=== PATIENT | female | born 1945 | race American Indian/Alaskan Native ===

== ENCOUNTER → 2017-08-04 | Outpatient (CLI) | payer MEDICARE, BC ==
[~2017-08-04] MED LIST: BLOO-1318 MC; GLIM2TAB43 PO; GLIM4TAB50 PO; HYDR-2966 PO; PIOG45TA3 PO; PRAV40TA78 PO; RAMI5CAP53 PO; ROSU10TA13 PO; ROSU20TA13 PO; SITA1TAB17 PO; SITA1TBM4 PO
[2017-08-04 09:42] LABS: PLATELET COUNT, AUTOMATED 265 K/uL (150-450)
== END ==
LOC: LAB 09:19
PROVIDERS: ATTEND Emergency Medicine
DX: E11.9 Type 2 diabetes mellitus without complications (principal); E55.9 Vitamin D deficiency, unspecified; I10 Essential (primary) hypertension
CPT/HCPCS: 36415; 82040; 82247; 82306; 82310; 82374; 82435; 82465; 82565; 82947; 83036; 83718; 84075; 84132; 84155; 84295; 84443; 84450; 84460; 84478; 84520; 85025

== ENCOUNTER → 2017-08-11 | Outpatient (CLI) | payer MEDICARE, BC ==
[~2017-08-11] MED LIST changes: +CHOL100052 PO
== END ==
LOC: LAB 13:10
PROVIDERS: ATTEND Emergency Medicine
DX: D64.9 Anemia, unspecified (principal)
CPT/HCPCS: 82274

== ENCOUNTER → 2017-09-02 | Outpatient (CLI) | payer MEDICARE, BC ==
[~2017-09-02] MED LIST changes: +GOLYTE PO
[2017-09-02 08:55] LABS: PLATELET COUNT, AUTOMATED 267 K/uL (150-450)
== END ==
LOC: LAB 08:31
PROVIDERS: ATTEND Emergency Medicine
DX: D64.9 Anemia, unspecified (principal)
CPT/HCPCS: 36415; 85025

== ENCOUNTER 2017-10-15 02:40 | Day surgery (SDC) | payer MEDICARE, BC ==
[~2017-10-15] VITALS: Ht 157.5 cm; Wt 80.3 kg
[2017-10-15 08:04] VITALS: BP 148/78
[2017-10-15] MEDS ORDERED: LIDOCAINE/SOD BICARB 8.4% SYR ID ONE (08:30)
[2017-10-15] MEDS ORDERED: NORMOSOL R SOLN(*) 1000 ML BAG 1,000 ML IV PRN (08:30)
[2017-10-15] MEDS ORDERED: PROPOFOL EMUL(*) 10MG/ML 20 ML 20 ML ONE (10:28)
[2017-10-15 10:46] VITALS: BP 132/70
--- NOTE | 2017-10-15 10:50 | Short(Outpt) Discharge Summary ---
Discharge Summary Reason for Hosp/Final Diag: (1) Colon cancer screening Status: Chronic Hospital Course & Plan: Colonoscopy completed without any problems. Departure Discharge to: Home, Self Care Discharge Instructions Home Meds Active Scripts Peg/Electrolytes (GOLYTELY SOLUTION) 4,000 Ml Soln, 1 GAL PO ONCE, #1 GAL 0 Refills Prov:JANET BOURGEOIS MD 09/03/17 Rosuvastatin Calcium (Rosuvastatin Calcium) 20 Mg Tablet, 2 TAB PO DAILY, #90 TAB 3 Refills Prov:JASON BUENO MD 08/08/17 Blood Sugar Diagnostic (ONE TOUCH ULTRA TEST STRIPS) 1 Each Strip, 1 EACH MC DAILY, #100 STRIP 3 Refills Test blood sugar daily Prov:JASON BUENO MD 08/04/17 Sitagliptin Phos/Metformin Hcl (JANUMET XR 50-1,000 MG TABLET) 1 Each Tbmp.24hr , 1 EACH PO DAILY, #90 TAB 3 Refills Prov:JASON BUENO MD 08/04/17 Ramipril (RAMIPRIL) 5 Mg Capsule, 5 MG PO QDAY, #90 CAPSULE 3 Refills Prov:JASON BUENO MD 08/04/17 Hydrochlorothiazide (HYDROCHLOROTHIAZIDE) 25 Mg Tablet, 1 TAB PO QDAY, #90 TAB 3 Refills Prov:JASON BUENO MD 08/04/17 Glimepiride (GLIMEPIRIDE) 4 Mg Tablet, 4 MG PO QDAY, #90 TAB 3 Refills Prov:JASON BUENO MD 08/04/17 Reported Medications Cholecalciferol (Vitamin D3) (VITAMIN D) 1,000 Unit Tablet, 1000 UNIT PO DAILY 08/08/17 Diet: Regular Activity: As Tolerated Special Instructions: Your colonoscopy was completed without any problems. I didn't find any polyps, cancers, or inflammation in your colon. You do have diverticuli throughout your colon. These are benign outpouchings that develop over the course of your life and I just recommend that you're eating at least 4 servings of fruits and vegetables (mostly vegetables), every day. You should have one more colonoscopy in 10 years for screening (health permitting). JANET BOURGEOIS MD Oct 15, 2017 10:49
[2017-10-15 11:00] VITALS: BP 139/70
[2017-10-15 11:24] VITALS: BP 135/93
[2017-10-15 11:26] VITALS: BP 149/75
== END 2017-10-15 11:40 | disposition home or self-care (01) ==
LOC: OR 02:40
PROVIDERS: ATTEND Surgery
DX: Z12.11 Encounter for screening for malignant neoplasm of colon (principal); K57.30 Diverticulosis of large intestine without perforation or abscess without bleeding; I10 Essential (primary) hypertension; E11.9 Type 2 diabetes mellitus without complications; E66.9 Obesity, unspecified; Z68.32 Body mass index [BMI] 32.0-32.9, adult; E78.5 Hyperlipidemia, unspecified
CPT/HCPCS: 00812; 36416; 82948; G0121; J2704

== ENCOUNTER → 2018-08-12 | Outpatient (CLI) | payer MEDICARE, BC ==
[~2018-08-12] MED LIST changes: +DAPA5TAB PO; -PIOG45TA3 PO; +PIOG45TA65 PO; -RAMI5CAP53 PO; +RAMI5CAP7 PO; -ROSU10TA13 PO; +ROSU10TA5 PO; -ROSU20TA13 PO; +ROSU20TA5 PO
[2018-08-12 09:25] LABS: PLATELET COUNT, AUTOMATED 264 K/uL (150-450)
[2018-08-12 10:12] LABS: LDL CHOLESTEROL 96 mg/dl
== END ==
LOC: LAB 08:55
PROVIDERS: ATTEND Emergency Medicine
DX: E11.9 Type 2 diabetes mellitus without complications (principal); M85.80 Other specified disorders of bone density and structure, unspecified site; I10 Essential (primary) hypertension; E55.9 Vitamin D deficiency, unspecified
CPT/HCPCS: 36415; 82040; 82247; 82306; 82310; 82374; 82435; 82465; 82565; 82947; 83036; 83718; 84075; 84132; 84155; 84295; 84450; 84460; 84478; 84520; 85025

== ENCOUNTER → 2018-09-09 | Outpatient (CLI) | payer MEDICARE, BC ==
[~2018-09-09] MED LIST changes: +DAPA10TA PO; +ROSU40TA18 PO
== END ==
LOC: LAB 13:40
PROVIDERS: ATTEND Emergency Medicine
DX: E11.9 Type 2 diabetes mellitus without complications (principal)
CPT/HCPCS: 36415; 83036

== ENCOUNTER → 2018-09-15 | Outpatient (CLI) | payer MEDICARE, BC ==
--- NOTE | 2018-09-16 09:49 | RADIOLOGY IMAGING REPORT ---
FACILITY: [facility] - [place] PATIENT NAME: JASBIR JORDAN : [id number] MR: [id number] V: [id number] EXAM DATE: [id number] ORDERING PHYSICIAN: JASON BUENO TECHNOLOGIST: Regina Mcdonough PROCEDURE: BILATERAL DIGITAL SCREENING MAMMOGRAM WITH CAD ASSISTED INTERPRETATION & 3D TOMOSYNTHESIS. REASON FOR STUDY: Screening. FAMILY HISTORY OF BREAST CANCER: None. BREAST PROCEDURES/TREATMENTS: None. COMPARISON: 07/06/15. VIEWS OBTAINED: 2D & 3D full field CC & MLO. BREAST DENSITY: There are scattered areas of fibroglandular density throughout the breasts. MAMMOGRAM FINDINGS: The parenchymal pattern has remained stable allowing for difference in mammographic technique & patient positioning. IMPRESSION: BIRADS 1: Negative. DIAGNOSTIC CATEGORY 1--NEGATIVE. RECOMMENDATIONS: ROUTINE MAMMOGRAM AND CLINICAL EVALUATION IN 1 YEAR. Dictated by: Samina Zurita M.D. on 09/15/2018 at 16:48 Transcribed by: HERMELINDA on 09/16/2018 at 8:36 Approved by: Samina Zurita M.D. on 09/16/2018 at 9:48 [facility]
== END ==
LOC: MAMO 00:42
PROVIDERS: ATTEND Emergency Medicine
DX: Z12.31 Encounter for screening mammogram for malignant neoplasm of breast (principal)
CPT/HCPCS: 77063; 77067

== ENCOUNTER → 2018-10-06 | Outpatient (CLI) | payer MEDICARE, BC ==
[~2018-10-06] MED LIST changes: +ROSU20TA24 PO
== END ==
LOC: LAB 15:39
PROVIDERS: ATTEND Emergency Medicine
DX: E11.9 Type 2 diabetes mellitus without complications (principal)
CPT/HCPCS: 36415; 83036; 84443

== ENCOUNTER → 2018-10-14 | Outpatient (REF) | payer MEDICARE, BC ==
[2018-10-14 13:13] LABS: PLATELET COUNT, AUTOMATED 300 K/uL (150-450)
== END ==
PROVIDERS: ATTEND Nurse Practitioner Family
DX: R09.02 Hypoxemia (principal); R05 Cough
CPT/HCPCS: 82040; 82247; 82310; 82374; 82435; 82565; 82947; 84075; 84132; 84155; 84295; 84450; 84460; 84520; 85025

== ENCOUNTER → 2018-10-20 | Outpatient (CLI) | payer MEDICARE, BC | LOC: LAB 08:16 | PROVIDERS: ATTEND Emergency Medicine | DX: E11.9 Type 2 diabetes mellitus without complications (principal); I10 Essential (primary) hypertension | CPT/HCPCS: 36415; 82310; 82374; 82435; 82565; 82947; 83036; 84132; 84295; 84520 ==

== ENCOUNTER → 2018-11-23 | Outpatient (CLI) | payer MEDICARE, BC ==
--- NOTE | 2018-11-24 10:58 | EKG ---
FACILITY: [facility] - [place] PATIENT NAME: JASBIR JORDAN : [id number] MR: [id number] V: [id number] EXAM DATE: ORDERING PHYSICIAN: JASON BUENO TECHNOLOGIST: WM GROSS Test Reason : Blood Pressure : / mmHG Vent. Rate : 067 BPM Atrial Rate : 067 BPM P-R Int : 120 ms QRS Dur : 078 ms QT Int : 410 ms P-R-T Axes : 031 045 079 degrees QTc Int : 433 ms Normal sinus rhythm Normal ECG No previous ECGs available Referred By: ROJAS Confirmed By:
== END ==
LOC: RESP 14:43
PROVIDERS: ATTEND Emergency Medicine
DX: Z02.9 Encounter for administrative examinations, unspecified (principal)